=== PATIENT | female | born 1985 | race Caucasian/White ===

== ENCOUNTER 2016-08-11 05:28 | Emergency (ER) | payer OTHER ==
[2016-08-11 09:43] VITALS: BP 113/62
== END 2016-08-11 09:43 | disposition home or self-care (01) ==
LOC: ED 05:28
DX: J45.901 Unspecified asthma with (acute) exacerbation (principal); Z79.51 Long term (current) use of inhaled steroids
CPT/HCPCS: J7512; J7620; Q0092

== ENCOUNTER 2016-11-26 05:38 | Emergency (ER) | payer OTHER ==
[2016-11-26 07:04] VITALS: BP 138/71
== END 2016-11-26 07:04 | disposition home or self-care (01) ==
LOC: ED 05:38
DX: J45.901 Unspecified asthma with (acute) exacerbation (principal)
CPT/HCPCS: J7512; J7620

== ENCOUNTER 2018-04-13 18:42 | Emergency (ER) | payer OTHER ==
[~2018-04-13] VITALS: Ht 152.4 cm; Wt 65.3 kg
[2018-04-13 18:49] VITALS: Ht 152.4 cm; Wt 65.3 kg
[2018-04-13 19:47] LABS: BASOPHIL % 0.7 % (0-2); PLATELET COUNT 356 x10^3mcL (130-400); RED CELL DISTRIBUTION WIDTH 13.2 % (11.5-14.5)
[2018-04-13 19:54] LABS: CALCIUM 8.7 mg/dL (8.5-10.1); CHLORIDE SERUM 103 mmol/L (98-107); CREATININE SERUM 0.6 mg/dL (0.6-1.0); GFR1 > 60 mL/min; GLUCOSE SERUM 133 mg/dL (74-106); POTASSIUM SERUM 3.7 mmol/L (3.5-5.1); SODIUM SERUM 138 mmol/L (136-145)
[2018-04-13 19:59] LABS: ALBUMIN 3.4 g/dL (3.4-5.0); ALKALINE PHOSPHATASE 82 U/L (46-116); ALT/SGPT 51 U/L (14-59); AST/SGOT 34 U/L (15-37); BILIRUBIN TOTAL 0.1 mg/dL (0.20-1.00); TOTAL PROTEIN, SERUM 7.9 g/dL (6.4-8.2)
[2018-04-13 22:05] VITALS: BP 108/65
== END 2018-04-13 22:04 | disposition home or self-care (01) ==
LOC: ED 18:42
PROVIDERS: Emergency Medicine
DX: O20.0 Threatened abortion (principal); J45.909 Unspecified asthma, uncomplicated; Z3A.01 Less than 8 weeks gestation of pregnancy
CPT/HCPCS: 36415

== ENCOUNTER 2018-09-19 18:28 | Emergency (ER) | payer OTHER ==
[~2018-09-19] VITALS: Ht 144.8 cm; Wt 82.6 kg
[2018-09-19 18:35] VITALS: Ht 144.8 cm; Wt 82.6 kg
[2018-09-19 20:02] LABS: BASOPHIL % 0.4 % (0-2); PLATELET COUNT 290 x10^3mcL (130-400); RED CELL DISTRIBUTION WIDTH 14.8 % (11.5-14.5)
[2018-09-19 20:13] LABS: CALCIUM 8.8 mg/dL (8.5-10.1); CARBON DIOXIDE 26.3 mmol/L (21-32); CHLORIDE SERUM 102 mmol/L (98-107); CREATININE SERUM 0.7 mg/dL (0.6-1.0); GFR1 > 60 mL/min; GLUCOSE SERUM 92 mg/dL (74-106); POTASSIUM SERUM 3.6 mmol/L (3.5-5.1); SODIUM SERUM 138 mmol/L (136-145)
[2018-09-19 20:17] LABS: ALBUMIN 3.5 g/dL (3.4-5.0); ALKALINE PHOSPHATASE 64 U/L (46-116); ALT/SGPT 10 U/L (14-59); AST/SGOT 13 U/L (15-37); BILIRUBIN TOTAL 0.52 mg/dL (0.20-1.00); TOTAL PROTEIN, SERUM 7.9 g/dL (6.4-8.2)
[2018-09-19 22:42] VITALS: BP 103/61
== END 2018-09-19 22:42 | disposition home or self-care (01) ==
LOC: ED 18:28
PROVIDERS: Specialist
DX: O26.891 Other specified pregnancy related conditions, first trimester (principal); R10.13 Epigastric pain; R11.0 Nausea; J45.909 Unspecified asthma, uncomplicated; Z3A.01 Less than 8 weeks gestation of pregnancy
CPT/HCPCS: 36415; J2550; Q0092

== ENCOUNTER 2018-10-01 19:21 | Emergency (ER) | payer OTHER ==
[~2018-10-01] VITALS: Ht 144.8 cm; Wt 82.7 kg
[2018-10-01 19:26] VITALS: Ht 144.8 cm; Wt 82.7 kg
[2018-10-01 22:28] VITALS: BP 119/59
== END 2018-10-01 22:28 | disposition home or self-care (01) ==
LOC: ED 19:21
DX: O99.711 Diseases of the skin and subcutaneous tissue complicating pregnancy, first trimester (principal); T78.1XXA Other adverse food reactions, not elsewhere classified, initial encounter; R21 Rash and other nonspecific skin eruption; X58.XXXA Exposure to other specified factors, initial encounter; Z3A.01 Less than 8 weeks gestation of pregnancy